=== PATIENT | female | born 1955 | race Caucasian/White ===

== ENCOUNTER 2018-03-17 10:28 | Emergency (ER) | payer OTHER, MEDICARE ==
[~2018-03-17] VITALS: Ht 152.4 cm; Wt 64.4 kg
[~2018-03-17 10:28] MED LIST: BENTYL20 MG PO; BLM PO; VALTREX500 MG PO
--- NOTE | 2018-03-17 12:57 | ED CARDIAC/CP/PALPITATIONS ---
History of Present Illness General Chief Complaint: Chest Pain Stated Complaint: CP ON AND OFF X 6 DAYS Source: patient Exam Limitations: no limitations Vital Signs & Intake/Output Vital Signs & Intake/Output Vital Signs Date Time Temp Pulse Resp B/P B/P Pulse O2 O2 Flow FiO2 Mean Ox Delivery Rate 03/17 1303 98.0 67 16 170/78 97 Room Air 03/17 1038 97.8 90 16 158/77 97 Room Air Allergies Coded Allergies: Penicillins (HIVES 03/17/18) morphine (ITCHING 03/17/18) Reconcile Medications Amlodipine Besylate 2.5 MG TABLET 1 TAB PO DAILY HEART (Reported) Aspirin (Aspirin*) 81 MG TAB.CHEW 1 TAB PO DAILY HEART HEALTH (Reported) Bupropion HCl (Wellbutrin XL) 300 MG TAB.ER.24H 1 TAB PO DAILY MENTAL HEALTH (Reported) Gabapentin 300 MG CAPSULE 1 CAP PO DAILY UNKN OWN (Reported) Levothyroxine Sodium 100 MCG TABLET 1 TAB PO DAILY AC THYROID (Reported) Losartan/Hydrochlorothiazide (Losartan-Hctz 100-12.5 MG Tab) 100 MG-12.5 MG TABLET 1 TAB PO DAILY HEART (Reported) Meloxicam 15 MG TABLET 1 TAB PO DAILY PAIN (Reported) Omeprazole 40 MG CAPSULE.DR 1 CAP PO DAILY PUD Propranolol HCl (Propranolol HCl ER) 80 MG CAP.SA.24H 1 CAP PO DAILY HEART ( Reported) Quetiapine Fumarate (Seroquel XR) 200 MG TAB.ER.24H 1 TAB PO QPM SLEEP ( Reported) Tramadol HCl 50 MG TABLET 1 TAB PO 4 TIMES/DAY PAIN (Reported) Triage Note: 62 YEAR OLD FEMALE STATES THAT FOR THE PAST 6 DAYS SHE HAS BEEN GETTING INTERMITTANT MID EPIGASTRIC PAIN THAT RADIATES UNDER HER L BREAST, LAST EPISODE WAS AT 0300 AND SHE TOOK TUMS AND PAIN WENT AWAY. Triage Nurses Notes Reviewed? yes Onset: Abrupt Duration: day(s): Timing: recent history Location: left rib HPI: This is a 62 y/o female with PMHx of HTN, elevated cholesterol and hypothyroidism c/o of chest pain that started 6 days ago. Pain is intermittent and radiates under her L breast and L shoulder blade. Pt has been taking Tums with significant relief, however, the pain always comes back. Food alleviates the symptoms temporarily. Pt denies alcohol use, SOB, numbness/tingling in upper extremities, N/V/D. No Hx of abdominal surgery. (Byron Chandra) Past History Travel History Traveled to [place] past 21 day No Medical History Any Pertinent Medical History? see below for history Cardiovascular: hypertension, ELEVATED CHOLESTEROL Musculoskeletal: BACK PAIN Psychiatric: bipolar disease Endocrine: THYROID DISORDER Influenza Vaccine: 06/14/11 Surgical History Surgical History: LOW BACK Psychosocial History Who do you live with Family Services at Home None What is your primary language Sinhala Tobacco Use: Never used ETOH Use: denies use Illicit Drug Use: denies illicit drug use Family History Hx Contributory? No (Byron Chandra) Review of Systems Review of Systems Constitutional: Reports: no symptoms. EENTM: Reports: no symptoms. Respiratory: Reports: no symptoms. Cardiovascular: Reports: see HPI. GI: Reports: see HPI. Genitourinary: Reports: no symptoms. Musculoskeletal: Reports: no symptoms. Skin: Reports: no symptoms. Neurological/Psychological: Reports: no symptoms. Hematologic/Endocrine: Reports: no symptoms. Immunologic/Allergic: Reports: no symptoms. All Other Systems: Reviewed and Negative (Byron Chandra) Physical Exam Physical Exam General Appearance: well developed/nourished, no apparent distress, alert, awake Head: atraumatic Eyes: Bilateral: normal appearance. Ears, Nose, Throat: normal ENT inspection, hearing grossly normal Neck: normal inspection Respiratory: normal breath sounds, no respiratory distress Cardiovascular: regular rate/rhythm Gastrointestinal: soft, non-tender Back: normal inspection Extremities: normal inspection Neurologic/Psych: awake, alert, oriented x 3, normal gait Skin: intact, normal color Core Measures ACS in differential dx? No CVA/TIA Diagnosis No Sepsis Present: No Sepsis Focused Exam Completed? No (Byron Chandra) Progress Differential Diagnosis: AMI, cholecystitis, pancreatitis, pneumonia, pneumothorax, pulmonary embolism, PUD/GERD, unstable angina Plan of Care: Orders Procedure Date/time Status TROPONIN LEVEL 03/17 1555 Complete EKG 03/17 1555 Active Telemetry/Septic Tank Installer 03/17 1241 Active URINALYSIS 03/17 1241 Complete TROPONIN LEVEL 03/17 1241 Complete LIPASE 03/17 1241 Complete D-DIMER 03/17 1241 Complete COMPREHENSIVE METABOLIC PANEL 03/17 1241 Complete CBC WITHOUT DIFFERENTIAL 03/17 1241 Complete EKG 03/17 1029 Active Laboratory Tests 03/17/18 1629: Troponin I < 0.01 03/17/18 1257: Urine Color STRAW, Urine Clarity CLEAR, Urine pH 6.5, Ur Specific [place] 1.010, Urine Protein NEG, Urine Ketones NEG, Urine Nitrite NEG, Urine Bilirubin NEG, Urine Urobilinogen 0.2, Ur Leukocyte Esterase NEG, Ur Microscopic EXAM NOT REQUIRED, Urine Hemoglobin NEG, Urine Glucose NEG 03/17/18 1252: Anion Gap 11, Estimated GFR 51 L, BUN/Creatinine Ratio 20.9, Glucose 89, Calcium 10.0, Total Bilirubin 0.5, AST 39 H, ALT 59 H, Alkaline Phosphatase 102, Troponin I < 0.01, Total Protein 7.9, Albumin 4.2, Globulin 3.7, Albumin/ Globulin Ratio 1.1, Lipase 133, D-Dimer High Sensitivty < 200, CBC w Diff NO MAN DIFF REQ, RBC 3.91 L, MCV 90.4, MCH 31.5 H, MCHC 34.9, RDW 12.6, MPV 8.4, Gran % 64.0, Lymphocytes % 22.5, Monocytes % 9.4 H, Eosinophils % 3.8, Basophils % 0.3, Absolute Granulocytes 3.5, Absolute Lymphocytes 1.2, Absolute Monocytes 0.5 , Absolute Eosinophils 0.2, Absolute Basophils 0 Diagnostic Imaging: Viewed by Me: Radiology Read. Discussed w/RAD: Radiology Read. Radiology Impression: PATIENT: KAUR DIAZ PRESENT AGE: 62 PATIENT ACCOUNT NO: [id number] : 57 LOCATION: [facility] ORDERING PHYSICIAN: Byron GAMBLE SERVICE DATE: 03/17/18 EXAM TYPE : RAD - XRY-CHEST XRAY, TWO VIEWS EXAMINATION: CHEST 2 VIEWS CLINICAL INFORMATION: Chest pain. COMPARISON: 06/21/2017. TECHNIQUE: PA and lateral views of the chest were obtained. FINDINGS: The cardiac silhouette is not enlarged. The mediastinal and hilar contours are unremarkable. There are neither pleural effusions nor pneumothoraces. There are no consolidations. The osseous structures are stable. IMPRESSION: No evidence for acute disease. DICTATED BY: Drew Albarado MD DATE/TIME DICTATED:03/17/181311 CROCHET MACHINE OPERATOR:FLORESITA DATE/TIME TRANSCRIBED:06/04/18 / 1312 CONFIDENTIAL, DO NOT COPY WITHOUT APPROPRIATE AUTHORIZATION. <Electronically signed in Other Vendor System> SIGNED BY: Drew Albarado MD 03/17/18 9907 Initial ED EKG: normal sinus rhythm, rate (73), nonspecific ST T wave chg Prior EKG: unchanged Repeat EKG: unchanged (Mykel GAMBLE,Byron) Departure Departure Disposition: HOME OR SELF CARE Condition: Stable Clinical Impression Primary Impression: Atypical chest pain Secondary Impressions: PUD (peptic ulcer disease) Referrals: Anjali HAYNES,Barrera Alvarez MD,Anson (PCP/Family) Additional Instructions: Take omeprazole as prescribed. Follow-up with your leather production machine operator for outpatient stress test. Follow-up with supervisor cold rolling for upper endoscopy. Return immediately if any other concerns worsening symptoms. Please go over all results of today's visit with your primary care doctor. Contact your primary care doctor to let them know you were here in the emergency room. There may be nonspecific findings which may not be related to your visit today here in the emergency room but may require further evaluation and chronic monitoring by your primary care doctor. If you had a laceration today the chance of foreign body always remains. You should follow-up with your primary care doctor for recheck in 3-5 days for a wound check. If you had an x-ray done there is a chance that a fracture could have been missed on initial read and you should follow-up with your primary care doctor for repeat x-rays if symptoms persist. If your blood pressure was elevated here in the emergency room please have rechecked by [facility] primary care doctor within the next 48. If you were prescribed a narcotic here in the emergency room or any type of controlled substances you're not allowed to drive while taking this medication or operate any type of heavy machinery. Narcotics can make you feel lightheaded dizziness nausea and can cause constipation. You may need to berry picker machine operator a stool softener. Thank you for choosing [facility] emergency room. Please return to the emergency room immediately if you have any other concerns worsening of symptoms. Departure Forms: Customer Survey General Discharge Information Prescriptions: Current Visit Scripts Omeprazole 1 CAP PO DAILY #30 CAP Ref 1 Comments 03/17/2018 6:11:36 PM I spoke with the patient's leather production machine operator Dr. Joshua. She does not have any cardiac issues with has seen him in the past. Symptoms improved after GI cocktail for tonics. Feel symptoms are most likely consistent with peptic ulcer disease specifically duodenal ulcer. Patient was started on PPI. 2 normal troponins. 2 unchanged EKGs. Case was discussed with Dr. Mathias. He saw and evaluated the patient as well. Her symptoms completely resolved after GI cocktail and PPI. She understands and agrees a plan of care. She was referred to GI for upper endoscopy. She is also referred to cardiology to still get a stress test on (Byron Chandra) PA/CONSTRUCTION EQUIPMENT OPERATOR Co-Sign Statement Statement: ED Attending supervision documentation- [X] I saw and evaluated the patient. I have also reviewed all the pertinent lab results and diagnostic results. I agree with the findings and the plan of care as documented in the PA's/CONSTRUCTION EQUIPMENT OPERATOR's documentation. [] I have reviewed the ED Record and agree with the PA's/CONSTRUCTION EQUIPMENT OPERATOR's documentation. [] Additions or exceptions (if any) to the PAs/CONSTRUCTION EQUIPMENT OPERATOR's note and plan are summarized below: [] (Zaheer Mathias DO) Critical Care Note Critical Care Note Critical Care Time: non-applicable (Byron Chandra)
[2018-03-17 13:07] LABS: ABSOLUTE BASOPHIL COUNT 0 /CUMM (0.0-0.2); ABSOLUTE EOSINOPHIL COUNT 0.2 /CUMM (0.0-0.7); ABSOLUTE GRANULOCYTE CT 3.5 /CUMM (1.4-6.5); ABSOLUTE LYMPH COUNT 1.2 /CUMM (1.2-3.4); ABSOLUTE MONOCYTE COUNT 0.5 /CUMM (0.10-0.60); BASOPHIL % 0.3 % (0.0-2.0); EOSINOPHIL % 3.8 % (0-5); HEMATOCRIT 35.4 % (37-47); MEAN CORPUSCULAR HGB 31.5 PG (27.0-31.0); MEAN CORPUSCULAR HGB CONC 34.9 G/DL (33.0-37.0); MEAN CORPUSCULAR VOLUME 90.4 FL (81.0-99.0); MEAN PLATELET VOLUME 8.4 FL (7.4-10.4); PLATELET COUNT 174 /CUMM (130-400); RBC DISTRIBUTION WIDTH 12.6 % (11.5-14.5); RED BLOOD CELL CT 3.91 /CUMM (4.20-5.40); WHITE BLOOD CELL COUNT 5.5 /CUMM (4.8-10.8)
--- NOTE | 2018-03-17 13:39 | RADIOLOGY REPORT ---
EXAMINATION: CHEST 2 VIEWS CLINICAL INFORMATION: Chest pain. COMPARISON: 06/21/2017. TECHNIQUE: PA and lateral views of the chest were obtained. FINDINGS: The cardiac silhouette is not enlarged. The mediastinal and hilar contours are unremarkable. There are neither pleural effusions nor pneumothoraces. There are no consolidations. The osseous structures are stable. IMPRESSION: No evidence for acute disease.
[2018-03-17] MEDS ORDERED: LOSARTAN-HCTZ1 EACH PO (14:44)
[2018-03-17] MEDS ORDERED: TRAMADOL HCL50 M1 PO (14:44)
[2018-03-17] MEDS ORDERED: MELOXICAM15 M1 PO (14:44)
[2018-03-17] MEDS ORDERED: LEVOTHYROXINE100 MC1 PO (14:44)
[2018-03-17] MEDS ORDERED: WELLBUTRIN XL300 M2 PO (14:45)
[2018-03-17] MEDS ORDERED: GABAPENTIN300 M2 PO (14:45)
[2018-03-17] MEDS ORDERED: AMLODIPINE BES2.5 M1 PO (14:45)
[2018-03-17] MEDS ORDERED: ASPIRIN81 M4 PO (14:45)
[2018-03-17] MEDS ORDERED: SEROQUEL XR200 M1 PO (14:45)
[2018-03-17] MEDS ORDERED: PROPRANOLOL HCL80 M2 PO (14:45)
[2018-03-17 17:33] VITALS: BP 155/74
[2018-03-17] MEDS ORDERED: OMEPRAZOLE40 M1 PO (17:54)
== END 2018-03-17 21:00 ==
LOC: ERH 10:28
PROVIDERS: Physician Assistant Medical
DX: R07.89 Other chest pain (principal); K27.9 Peptic ulcer, site unspecified, unspecified as acute or chronic, without hemorrhage or perforation; I10 Essential (primary) hypertension
CPT/HCPCS: 71046; 81003; 93005; 93010